=== PATIENT | male | born 1975 | race Caucasian/White ===

== ENCOUNTER 2016-10-21 21:43 | Emergency (ER) | payer SELFPAY ==
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
== END 2016-10-21 22:12 ==
LOC: ER 21:43
DX: S11.90XA Unspecified open wound of unspecified part of neck, initial encounter (principal); R20.0 Anesthesia of skin; W34.09XA Accidental discharge from other specified firearms, initial encounter